=== PATIENT | female | born 2000 | race Caucasian/White ===

== ENCOUNTER 2023-11-07 13:41 | Outpatient (CLI) | payer OTHER ==
[~2023-11-07] VITALS: Ht 167.6 cm; Wt 100.2 kg
[~2023-11-07 13:41] MED LIST: MULTTAB20 PO
[2023-11-07 14:00] VITALS: BP 129/71
[2023-11-07] MEDS ORDERED: ACET-897 PO (14:04)
[2023-11-07] MEDS ORDERED: TUMS500C PO (14:04)
== END 2023-11-07 16:50 | disposition home or self-care (01) ==
LOC: M LDO 13:41
PROVIDERS: ATTEND Obstetrics & Gynecology
DX: O99.513 Diseases of the respiratory system complicating pregnancy, third trimester (principal); O09.293 Supervision of pregnancy with other poor reproductive or obstetric history, third trimester; J06.9 Acute upper respiratory infection, unspecified; Z3A.38 38 weeks gestation of pregnancy
CPT/HCPCS: 59025; 87486; 87581; 87633; 87798; G0463